=== PATIENT | female | born 1965 | race Caucasian/White ===

== ENCOUNTER 2018-03-31 13:23 | Emergency (ER) | payer BC, OTHER ==
[~2018-03-31] VITALS: Ht 167.6 cm; Wt 70.1 kg
[2018-03-31 13:25] VITALS: BP 161/96
[2018-03-31] MEDS ORDERED: IBUPROFEN 200 MG TABLET ONE (14:00)
[2018-03-31] MEDS ORDERED: IBUPROFEN 200 MG TABLET PO ONE (14:00)
== END 2018-03-31 14:46 | disposition home or self-care (01) ==
LOC: ED 14:40
DX: S39.012A Strain of muscle, fascia and tendon of lower back, initial encounter (principal); V49.9XXA Car occupant (driver) (passenger) injured in unspecified traffic accident, initial encounter; Y93.89 Activity, other specified; Y92.89 Other specified places as the place of occurrence of the external cause; Y99.8 Other external cause status
CPT/HCPCS: 72110; 99284